=== PATIENT | female | born 1965 | race Native Hawaiian/Other Pacific Islander ===

== ENCOUNTER 2017-04-12 13:52 | Outpatient (CLI) | payer BC | END 2017-04-12 15:00 | disposition home or self-care (01) | LOC: MAMMO 13:52 | DX: Z12.31 Encounter for screening mammogram for malignant neoplasm of breast (principal) | CPT/HCPCS: G0202-TC ==

== ENCOUNTER 2018-03-27 13:16 | Outpatient (CLI) | payer BC | END 2018-03-27 20:27 | disposition home or self-care (01) | LOC: RAD 13:16 | DX: M54.2 Cervicalgia (principal); G89.29 Other chronic pain; M54.5 Low back pain; M62.830 Muscle spasm of back ==

== ENCOUNTER 2019-06-06 15:28 | Outpatient (CLI) | payer BC | END 2019-06-06 20:14 | disposition home or self-care (01) | LOC: MAMMO 15:28 | DX: Z12.31 Encounter for screening mammogram for malignant neoplasm of breast (principal) ==

== ENCOUNTER 2020-12-08 15:17 | Outpatient (CLI) | payer BC | END 2020-12-08 20:59 | disposition home or self-care (01) | LOC: MAMMO 15:17 | PROVIDERS: ATTEND Obstetrics & Gynecology | DX: Z12.31 Encounter for screening mammogram for malignant neoplasm of breast (principal) ==

== ENCOUNTER 2022-03-17 10:57 | Outpatient (CLI) | payer BC | END 2022-03-17 18:56 | disposition home or self-care (01) | LOC: RAD 10:57 → MAMMO 11:30 → RAD 18:56 | PROVIDERS: ATTEND Obstetrics & Gynecology | DX: Z12.31 Encounter for screening mammogram for malignant neoplasm of breast (principal); Z13.820 Encounter for screening for osteoporosis; N95.8 Other specified menopausal and perimenopausal disorders ==

== ENCOUNTER 2023-03-28 10:38 | Outpatient (CLI) | payer BC | END 2023-03-28 20:48 | disposition home or self-care (01) | LOC: MAMMO 10:38 | PROVIDERS: ATTEND Obstetrics & Gynecology | DX: Z12.31 Encounter for screening mammogram for malignant neoplasm of breast (principal) ==